=== PATIENT | female | born 1990 | race Caucasian/White ===

== ENCOUNTER 2016-09-26 14:56 | Emergency (ER) | payer BC, OTHER ==
[~2016-09-26] VITALS: Ht 165.1 cm; Wt 108.8 kg
[2016-09-26] MEDS ORDERED: SODIUM CHLORIDE FLUSH 10ML SYR IVF ONE (15:30)
[2016-09-26] MEDS ORDERED: FAMOTIDINE 20 MG/2 ML IVP ONE (15:30)
[2016-09-26] MEDS ORDERED: ONDANSETRON 2MG/ML, 2ML IVPush ONE ×2 (15:30→16:00)
[2016-09-26] MEDS ORDERED: SODIUM CHLORIDE 0.9% 1,000ML IVBOLUS ONE (15:30)
[2016-09-26 15:51] LABS: ASPARTATE AMINO TRANSFERASE 13 U/L (15-37); BLOOD UREA NITROGEN 7 mg/dL (7-18)
[2016-09-26] MEDS ORDERED: MORPHINE SULFATE 4 MG/ML, 1ML ONE ×2 (15:51→18:42)
[2016-09-26] MEDS ORDERED: FAMOTIDINE 20 MG/2 ML ONE (15:51)
[2016-09-26] MEDS ORDERED: ONDANSETRON 2MG/ML, 2ML ONE ×2 (15:51→18:42)
[2016-09-26] MEDS ORDERED: MAALOX/HYOSCYAMINE/LIDOCAINE 45 ML BOTTLE ONE (15:51)
[2016-09-26] MEDS: MORPHINE SULFATE 4 MG/ML, 1ML IVPush PRN ×2 (15:56→18:45)
[2016-09-26] MEDS ORDERED: MAALOX/HYOSCYAMINE/LIDOCAINE 45 ML BOTTLE PO ONE (16:00)
[2016-09-26 18:49] VITALS: BP 114/64
== END 2016-09-26 20:11 | disposition home or self-care (01) ==
LOC: ED 18:38
DX: O26.892 Other specified pregnancy related conditions, second trimester (principal); Z3A.19 19 weeks gestation of pregnancy; R10.32 Left lower quadrant pain; G43.909 Migraine, unspecified, not intractable, without status migrainosus; Z87.891 Personal history of nicotine dependence
CPT/HCPCS: 36415; 74181; 80053; 81001; 83690; 84703; 85025; 87086; 96361; 96374; 96375; 96376; 99285; J2405; J7030; S0028

== ENCOUNTER 2016-12-05 08:16 | Emergency (ER) | payer OTHER ==
[~2016-12-05] VITALS: Ht 167.6 cm; Wt 115.9 kg
[2016-12-05 08:17] VITALS: BP 121/70
== END 2016-12-05 09:57 | disposition home or self-care (01) ==
LOC: ED 09:09
DX: O12.03 Gestational edema, third trimester (principal); R60.0 Localized edema; O99.513 Diseases of the respiratory system complicating pregnancy, third trimester; J45.30 Mild persistent asthma, uncomplicated; O99.353 Diseases of the nervous system complicating pregnancy, third trimester; G43.909 Migraine, unspecified, not intractable, without status migrainosus; Z3A.29 29 weeks gestation of pregnancy
CPT/HCPCS: 99284

== ENCOUNTER 2017-02-09 08:44 | Inpatient (IN) | payer OTHER, MEDICAID ==
[~2017-02-09] VITALS: Ht 165.1 cm; Wt 116.3 kg
[2017-02-09] MEDS ORDERED: OXYTOCIN 30U/ 0.9% NaCL 500ML 500 ML IV PRN (09:03)
[2017-02-09] MEDS ORDERED: OXYTOCIN 30U/ 0.9% NaCL 500ML 500 ML IV ONE (09:03)
[2017-02-09] MEDS ORDERED: AMPICILLIN 2 GM in SODIUM CHLORIDE 0.9% 100 ML IVPB STA (09:03)
[2017-02-09] MEDS: D5%-LACTATED RINGERS 1,000 ML IV SCH ×2 (09:03→17:03)
[2017-02-09] MEDS: LACTATED RINGERS 1,000 ML IV SCH ×3 (09:28→16:16)
[2017-02-09] MEDS ORDERED: SODIUM CITRATE/CITRIC ACID 30 ML UDC PO PRN (09:30)
[2017-02-09] MEDS ORDERED: ONDANSETRON 2MG/ML, 2ML IVPush PRN (09:30)
[2017-02-09] MEDS ORDERED: METOCLOPRAMIDE 5 MG/ML, 2ML IVPush PRN (09:30)
[2017-02-09] MEDS ORDERED: FENTANYL PF 100 MCG/2ML IV PRN (09:30)
[2017-02-09] MEDS ORDERED: FENTANYL PF 100 MCG/2ML IVPush PRN (09:30)
[2017-02-09] MEDS ORDERED: TERBUTALINE 1 MG/ML, 1ML IVPush PRN (09:30)
[2017-02-09] MEDS ORDERED: MISOPROSTOL 200 MCG TABLET ONE ×2 (09:33→19:14)
[2017-02-09] MEDS ORDERED: NEWBORN KIT ONE (09:33)
[2017-02-09] MEDS ORDERED: OXYTOCIN 30U/ 0.9% NaCL 500ML 500 ML ONE ×2 (09:33→19:46)
[2017-02-09] MEDS ORDERED: LIDOCAINE 1%, 20ML ONE (09:33)
[2017-02-09 09:34] LABS: HEMATOCRIT 32.5 % (34.6-47.8); HEMOGLOBIN 10.7 g/dL (11.7-16.4); WHITE BLOOD COUNT 7.1 x10^3/uL (3.4-10)
[2017-02-09 10:36] VITALS: BP 116/66
[2017-02-09] MEDS ORDERED: LIDOCAINE/PF 1.5%-EPI 1:200K, 30ML ONE (11:49)
[2017-02-09] MEDS ORDERED: FENTANYL/BUPIV./NS/PF 250 ML EPIDCONT ONE (11:49)
[2017-02-09] MEDS: AMPICILLIN 1 GM in SODIUM CHLORIDE 0.9% 50 ML IVPB SCH ×3 (13:38→21:00)
[2017-02-09] MEDS ORDERED: LACTATED RINGERS 1,000 ML IV SCH (19:15)
[2017-02-09] MEDS ORDERED: FENTANYL/BUPIV./NS/PF 250 ML EPIDCONT SCH (19:15)
[2017-02-09] MEDS ORDERED: NALOXONE 0.4 MG/ML, 1ML IVPush PRN (19:30)
[2017-02-09] MEDS ORDERED: EPHEDRINE 50 MG/ML, 1ML IVPush PRN (19:30)
[2017-02-09] MEDS ORDERED: LACTATED RINGERS 1,000 ML IVBOLUS PRN (19:30)
[2017-02-09] MEDS ORDERED: IBUPROFEN 600 MG TABLET ONE (19:45)
[2017-02-09] MEDS ORDERED: ONDANSETRON 2MG/ML, 2ML IV PRN (20:00)
[2017-02-09] MEDS ORDERED: OXYTOCIN 10 UNITS/ML, 1ML IM PRN (20:00)
[2017-02-09] MEDS ORDERED: METHYLERGONOVINE 0.2 MG/ML IM PRN (20:00)
[2017-02-09] MEDS ORDERED: CARBOPROST TROMETHAMINE 250 MCG/ML, 1ML IM PRN (20:00)
[2017-02-09] MEDS ORDERED: ACETAMINOPHEN 325 MG TABLET PO PRN (20:00)
[2017-02-09] MEDS ORDERED: MISOPROSTOL 200 MCG TABLET PR PRN ×2 (20:00)
[2017-02-09] MEDS: OXYTOCIN 30U/ 0.9% NaCL 500ML 500 ML IV SCH ×3 (21:13→21:40)
[2017-02-09] MEDS: IBUPROFEN 600 MG TABLET PO PRN (21:35)
[2017-02-09 21:40] VITALS: BP 110/58
[2017-02-09 22:40] VITALS: BP 119/79
[2017-02-09] MEDS: HYDROcodone/APAP 5/325 TABLET PO PRN (23:48)
[2017-02-10 00:55] VITALS: BP 111/60
[2017-02-10 04:20] VITALS: BP 104/58
[2017-02-10] MEDS: IBUPROFEN 600 MG TABLET PO PRN ×3 (04:30→16:59)
[2017-02-10] MEDS: HYDROcodone/APAP 5/325 TABLET PO PRN ×4 (04:30→20:41)
[2017-02-10] MEDS: OXYTOCIN 30U/ 0.9% NaCL 500ML 500 ML IV SCH ×2 (05:47→19:01)
[2017-02-10 06:20] LABS: HEMATOCRIT 31.4 % (34.6-47.8); HEMOGLOBIN 10.3 g/dL (11.7-16.4); WHITE BLOOD COUNT 9.2 x10^3/uL (3.4-10)
[2017-02-10 07:39] VITALS: BP 111/74
[2017-02-10] MEDS: PRENATAL VIT/IRON/FA 1 EACH TABLET PO SCH (10:56)
[2017-02-10] MEDS: DOCUSATE 100 MG CAPSULE PO PRN ×2 (10:57→20:41)
[2017-02-10 12:15] VITALS: BP 112/65
[2017-02-10 17:00] VITALS: BP 117/64
[2017-02-10 18:50] VITALS: BP 116/55
[2017-02-10] MEDS ORDERED: HYDR-3240 PO (23:23)
[2017-02-10] MEDS ORDERED: IBUP-1222 PO (23:24)
[2017-02-10] MEDS ORDERED: SENN-1 PO (23:26)
[2017-02-10] MEDS ORDERED: FERR324T8 PO (23:28)
[2017-02-11] MEDS: IBUPROFEN 600 MG TABLET PO PRN ×2 (01:00→06:47)
[2017-02-11] MEDS: HYDROcodone/APAP 5/325 TABLET PO PRN ×3 (01:00→11:06)
[2017-02-11] MEDS: OXYTOCIN 30U/ 0.9% NaCL 500ML 500 ML IV SCH (01:47)
[2017-02-11 06:50] VITALS: BP 102/54
[2017-02-11] MEDS: PRENATAL VIT/IRON/FA 1 EACH TABLET PO SCH (08:23)
[2017-02-11] MEDS: DOCUSATE 100 MG CAPSULE PO PRN (08:23)
== END 2017-02-11 12:20 | disposition home or self-care (01) | DRG 775 ==
LOC: LDIP 08:44 → 2NW 21:23
PROVIDERS: ADMIT Obstetrics & Gynecology; ATTEND Obstetrics & Gynecology
PROC: 10E0XZZ Delivery of Products of Conception, External Approach (ICD-10-PCS; principal; 2017-02-09)
PROC: 0HQ9XZZ Repair Perineum Skin, External Approach (ICD-10-PCS; 2017-02-09)
PROC: 10907ZC Drainage of Amniotic Fluid, Therapeutic from Products of Conception, Via Natural or Artificial Opening (ICD-10-PCS; 2017-02-09)
DX: O99.824 Streptococcus B carrier state complicating childbirth (principal); Z68.41 Body mass index [BMI] 40.0-44.9, adult; D69.6 Thrombocytopenia, unspecified; E66.01 Morbid (severe) obesity due to excess calories; Z37.0 Single live birth; O13.4 Gestational [pregnancy-induced] hypertension without significant proteinuria, complicating childbirth; O99.214 Obesity complicating childbirth; Z3A.38 38 weeks gestation of pregnancy; O69.1XX0 Labor and delivery complicated by cord around neck, with compression, not applicable or unspecified; O70.0 First degree perineal laceration during delivery; O76 Abnormality in fetal heart rate and rhythm complicating labor and delivery; O99.02 Anemia complicating childbirth; O99.12 Other diseases of the blood and blood-forming organs and certain disorders involving the immune mechanism complicating childbirth; D50.9 Iron deficiency anemia, unspecified
CPT/HCPCS: 36415; 85025; 86850; 86900; J0290; J2590; J7120

== ENCOUNTER → 2017-11-02 | Outpatient (CLI) | payer OTHER ==
[~2017-11-02] MED LIST: FERR324T8 PO; HYDR-3240 PO; IBUP-1222 PO; NONE PER PT; PREN1TAB56 PO; SENN-1 PO
== END ==
LOC: STAR 08:51
PROVIDERS: ATTEND Surgery
DX: Z02.9 Encounter for administrative examinations, unspecified (principal)

== ENCOUNTER 2017-11-06 08:38 | Day surgery (SDC) | payer OTHER ==
[~2017-11-06] VITALS: Ht 165.1 cm; Wt 121.4 kg
[~2017-11-06 08:38] MED LIST changes: +BUPIVACAINE/PF 0.5% ONE; +EPINEPHRINE 1 MG/ML, 1ML ONE; -NONE PER PT
[2017-11-06] MEDS ORDERED: LACTATED RINGERS 1,000 ML IV SCH (08:59)
[2017-11-06] MEDS ORDERED: NONE PER PT (09:00)
[2017-11-06 09:02] VITALS: BP 119/79
[2017-11-06 09:19] LABS: HCG UR SG 1.026 (1.003-1.030)
[2017-11-06] MEDS ORDERED: MIDAZOLAM 1 MG/ML, 2ML ONE (10:10)
[2017-11-06] MEDS ORDERED: CEFAZOLIN 1,000 MG ONE ×2 (10:11→10:17)
[2017-11-06] MEDS ORDERED: FENTANYL PF 250 MCG/5ML ONE (10:11)
[2017-11-06] MEDS ORDERED: DEXAMETHASONE 4 MG/ML, 1ML ONE (10:11)
[2017-11-06] MEDS ORDERED: GLYCOPYRROLATE 0.2MG/1ML, 5ML ONE (10:11)
[2017-11-06] MEDS ORDERED: PROPOFOL 10 MG/ML, 20ML ONE (10:11)
[2017-11-06] MEDS ORDERED: NEOSTIGMINE 1 MG/ML, 10ML ONE (10:12)
[2017-11-06] MEDS ORDERED: ONDANSETRON 2MG/ML, 2ML ONE (10:12)
[2017-11-06] MEDS ORDERED: SUCCINYLCHOLINE 20 MG/ML, 10ML ONE (10:12)
[2017-11-06] MEDS ORDERED: ROCURONIUM 10 MG/ML,10ML ONE (10:17)
[2017-11-06] MEDS ORDERED: PROMETHAZINE 25 MG SUPP PR PRN (10:30)
[2017-11-06] MEDS ORDERED: HYDROcodone/APAP 7.5-325MG/15ML UDC PO PRN (10:30)
[2017-11-06] MEDS ORDERED: ONDANSETRON ODT 8 MG PO PRN (10:30)
[2017-11-06] MEDS ORDERED: MEPERIDINE/PF 25MG/0.5ML IVPush PRN (10:30)
[2017-11-06] MEDS ORDERED: ACETAMINOPHEN 325 MG TABLET PO PRN (10:30)
[2017-11-06] MEDS ORDERED: MORPHINE SULFATE 4 MG/ML, 1ML IVPush PRN (10:30)
[2017-11-06] MEDS ORDERED: PROMETHAZINE 25 MG/ML, 1ML IV PRN (10:30)
[2017-11-06] MEDS ORDERED: OXYcodone 5 MG/5 ML ORAL.SOL UDC PO PRN (10:30)
[2017-11-06] MEDS ORDERED: OXYcodone 5 MG/5 ML ORAL.SOL UDC ONE (11:29)
[2017-11-06] MEDS ORDERED: LORazepam 2 MG/ML, 1ML ONE (11:29)
[2017-11-06] MEDS ORDERED: ACETAMINOPHEN 650 MG/20.3 ML UDC ONE (11:29)
[2017-11-06] MEDS ORDERED: FENTANYL PF 100 MCG/2ML ONE (11:29)
[2017-11-06] MEDS ORDERED: KETOROLAC 30 MG/1 ML ONE (11:31)
[2017-11-06] MEDS: LORazepam 2 MG/ML, 1ML IVPush PRN ×3 (11:31→12:18)
[2017-11-06] MEDS: FENTANYL PF 100 MCG/2ML IV PRN ×4 (11:36→12:29)
[2017-11-06] MEDS ORDERED: KETOROLAC 30 MG/1 ML IVPush STA (11:44)
[2017-11-06] MEDS ORDERED: MEPERIDINE/PF 50 MG/ML ONE (12:06)
[2017-11-06] MEDS ORDERED: morphine SULFATE 10 MG/ML, 1ML ONE (13:18)
[2017-11-06] MEDS: morphine SULFATE 10 MG/ML, 1ML IVPush PRN ×2 (13:20→14:13)
[2017-11-06] MEDS ORDERED: OXYcodone/APAP 5/325MG TABLET PO PRN (13:30)
[2017-11-06] MEDS ORDERED: ONDANSETRON 2MG/ML, 2ML IVPush PRN (13:30)
== END 2017-11-06 15:20 | disposition home or self-care (01) ==
LOC: OUT 08:38
PROVIDERS: ATTEND Surgery
DX: K80.10 Calculus of gallbladder with chronic cholecystitis without obstruction (principal); E66.01 Morbid (severe) obesity due to excess calories; Z83.3 Family history of diabetes mellitus; Z82.49 Family history of ischemic heart disease and other diseases of the circulatory system; Z68.38 Body mass index [BMI] 38.0-38.9, adult; Z87.891 Personal history of nicotine dependence
CPT/HCPCS: 47562; 81025; 88304; C1760; J0171; J0330; J0690; J1100; J1885; J2060; J2175; J2250; J2270; J2405; J2704; J2710; J3010; J3490; J7120